=== PATIENT | male | born 1950 | race Caucasian/White ===

== ENCOUNTER 2019-07-29 15:37 | Emergency (ER) | payer OTHER ==
[~2019-07-29] VITALS: Ht 172.7 cm; Wt 74.8 kg
[~2019-07-29 15:37] MED LIST: ASPIR 8181 MG PO; CELEXA20 MG PO; CLARITIN10 MG PO; FLOMAX0.4 MG PO; FLONASE 0.05%50 MCG NASAL; FOLIC ACID1 MG PO; LIPITOR10 MG PO; NEXIUM40 MG PO; POTASSIUM20 PO; PROVIGIL 100 M100 M1 PO; TRAZODONE HCL50 MG PO; VITAMIN B-1100 M1 PO
[2019-07-29 16:39] LABS: ABSOLUTE NEUTROPHILS 3.5 thou/uL (1.4-8.2); BASOPHILS 1.2 % (0.0-2.0); EOSINOPHILS 1.6 % (0.0-3.0); HEMATOCRIT 41.2 % (42.0-52.0); HEMOGLOBIN 13.3 gm/dL (14.0-18.0); LYMPHOCYTES 36.2 % (24.0-44.0); MCH 30.3 pg (26.0-34.0); MCHC 32.2 g/dL (28.0-37.0); MCV 94.1 fL (80.0-100.0); MONOCYTES 6.6 % (1.0-8.0); PLATELET COUNT 264 thou/uL (150-400); POLYS 54.4 % (36.0-66.0); RBC 4.38 mil/uL (4.50-6.00); WBC 6.4 thou/uL (4.0-11.0)
[2019-07-29 16:53] LABS: APTT 28.5 Seconds (24.5-32.8); PROTIME 10.7 Seconds (9.3-11.4)
[2019-07-29 16:54] LABS: CALCIUM 8.2 mg/dL (8.5-10.1); POTASSIUM 3.9 mmol/L (3.5-5.1)
[2019-07-29 19:24] VITALS: BP 118/71
--- NOTE | 2019-07-31 12:34 | EKG ---
[facility] [place] [address] [address] [address] ELECTROCARDIOGRAM REPORT Name: DEEDEE PEREZ Room #: [facility]P [facility].#: [id number] Admission: 07/29/19 Attend Phys: Discharge: 07/29/19 Date of : 52 Report #: [id number] THIS REPORT FOR: cc: JAMAL - No family physician/PCP FAM - No family physician/PCP Ernst Montelongo MD [facility] THIS REPORT FOR: //name// [facility] ED Test Date: 2019-07-29 Test Time: 18:50:04 Pat Name: DEEDEE PEREZ Department: Room: Gender: Line Appliance Assembler: [facility] : 1950 Requested By: Zita George Order Number: [id number] MD: Ernst Montelongo Measurements Intervals [place] Rate: 62 P: 60 IA: 181 QRS: -23 QRSD: 91 T: 46 QT: 433 QTc: 440 Interpretive Statements Sinus rhythm Inferior infarct, old Compared to ECG 05/06/2014 11:39:25 No significant change was found Electronically Signed On 07-30-2019 9:12:37 BEDSPREAD CUTTER by Ernst Montelongo [email or web address] <ELECTRONICALLY SIGNED> By: Ernst Montelongo MD, [facility] 07/30/19911 49 49 Ernst Montelongo MD, [facility] /EPI
== END 2019-07-29 19:25 | disposition short-term general hospital (02) ==
LOC: ER 15:37
PROVIDERS: Emergency Medicine
DX: H54.61 Unqualified visual loss, right eye, normal vision left eye (principal); G45.9 Transient cerebral ischemic attack, unspecified; I10 Essential (primary) hypertension; I48.91 Unspecified atrial fibrillation; E78.5 Hyperlipidemia, unspecified; F41.9 Anxiety disorder, unspecified; F17.210 Nicotine dependence, cigarettes, uncomplicated; Z86.711 Personal history of pulmonary embolism

== ENCOUNTER 2019-08-03 13:15 | Inpatient (IN) | payer OTHER ==
[~2019-08-03] VITALS: Ht 172.7 cm; Wt 66.6 kg
--- NOTE | ~2019-08-03 | D ---
[facility] [address] [place] [address] DISCHARGE SUMMARY Name: DEEDEE PEREZ Room #: 519B-B DIS IN M.R.#: [id number] Admission: 08/03/19 Attend Phys: Ivan Lainez DO Discharge: 08/14/19 Date of : 52 Report #: [id number] THIS REPORT FOR: cc: Onofre Landeros MD, Srinath MD Kerstein, Andrew H. DO ~ THIS REPORT FOR: //name// CC: Ivan Lainez Gracie Ashleigh Landeros DATE OF SERVICE: 08/14/2019 INPATIENT PSYCHIATRIC DISCHARGE SUMMARY ATTENDING PSYCHIATRIST: Ivan Lainez DO. PHARMACY ANCILLARY: Yg Resendiz MD DISCHARGE DIAGNOSES: Persistent depressive disorder, mild neurocognitive disorder. MEDICAL COMORBIDITIES THIS ADMISSION: Include substance use disorder for alcohol, severe by history; hyperlipidemia and persistent atrial fibrillation. DISCHARGE PLAN: The patient is discharging back to nursing facility, sent to us at [facility]. Psychiatric and medical care will be by that medical facility. In addition, the patient's diet should be heart healthy. Ambulation and endurance should be encouraged. DISCHARGE MEDICATIONS: Midodrine 5 mg p.o. 3 times a day at 0600, 1200 and 1800 for hypotension, baclofen 10 mg p.o. q. 8 scheduled for muscle stiffness dystonia. The patient does have a left sided hemiparesis with left upper extremity hand contracture. Atorvastatin 5 mg p.o. daily for hyperlipidemia, diltiazem 120 mg p.o. daily for rate control for atrial fibrillation, gabapentin 300 mg p.o. at 0900, 1500 and 2100 for neuropathic pain, fluoxetine 20 mg per day for depression, Seroquel 25 mg p.o. at bedtime for sleep, lorazepam to be given at 0.5 mg p.o. q. 8 p.r.n. for breakthrough anxiety, docusate 100 mg p.o. b.i.d., cyanocobalamin 1000 mcg p.o. daily for replacement. Also continue aspirin 81 mg p.o. daily, folic acid 1 mg p.o. daily, tamsulosin 0.4 mg p.o. daily, trazodone 50 mg p.o. at bedtime, latanoprost 1 drop ophthalmic both eyes at night, Eliquis 5 mg p.o. b.i.d. for anticoagulation and senna and docusate 1 tab p.o. b.i.d. for bowel motility. LABORATORY DATA: This admission included hematology: CBC grossly normal. [address] [address] DISCHARGE SUMMARY Name: DEEDEE PEREZ Room #: 519B-B DIS IN M.R.#: [id number] Admission: 08/03/19 Attend Phys: Ivan Lainez DO Discharge: 08/14/19 Date of : 52 Report #: [id number] Chemistries: Potassium slightly low at 3.4, otherwise within normal limits. Urinalysis showed few bacteria, little bit of blood, did not trigger a culture, attributed to dehydration. Toxicology was grossly negative as were acetaminophen and salicylate levels. REASON FOR ADMISSION: Back on 08/03/2019 or so, apparently staff who is at his nursing facility, heard him say that he was having thoughts of suicide. This did not veneer jointer returner to be reality once admitted to Geriatric Psych Unit. HOSPITAL COURSE: The patient was admitted to Geriatric Psychiatry Unit. It was unclear exactly how impaired the patient was. [facility] Mental Status exam was performed. He scored a 25/30. I thought the patient would be a quick turnaround in the skilled nursing; however, because this was his first psychiatric admission, level 2 was triggered and that process took well over a week. The patient, I will say, made the best of it, participated well. I did speak with his brother, Jefferson during the admission. Apparently, the chronic alcoholism has been quite the issue for the patient and apparently he was anderson and one his significant other back in 2015. The patient has not really made a good recovery. He was most recently living on his own this May and his drinking relapsed. The patient was admitted to Geriatric Psychiatry Unit. No alcohol withdrawal symptoms were observed. Regarding his medications, did not make too many changes. Obviously benzodiazepines should be used judiciously because of his alcoholism. IMAGING THIS ADMISSION: Renal ultrasound was done, which was grossly normal. Apparently, this was ordered for renal insufficiency. On the day of discharge, the patient was not suicidal or homicidal, felt to be stable for discharge. PHYSICAL EXAMINATION: VITAL SIGNS: Temperature 37.3, pulse 67, respirations 15, BP 97/64, O2 sat 99%. MUSCULOSKELETAL: Abnormal gait due to his left sided hemiparesis. MENTAL STATUS EXAMINATION: This is a well-developed, thin male with upper left extremity hand contracture. Attention fair. Concentration fair and fair. Speech is normal in rate, volume and tone. Thought process linear and goal oriented. Thought content focused on discharge. No psychomotor agitation. No psychomotor retardation. Denied SI or HI. Denied hopelessness or helplessness. Memory, minor impairment. Insight limited. Judgment fair. Fund of knowledge average range. [facility] [address] [place] [address] DISCHARGE SUMMARY Name: DEEDEE PEREZ Room #: 519B-B DIS IN M.R.#: [id number] Admission: 08/03/19 Attend Phys: Ivan Lainez DO Discharge: 08/14/19 Date of : 52 Report #: [id number] PROGNOSIS: For this patient is guarded given his age, his alcoholism, his mild cognitive impairment and his history of relapse. By: 1944 32 Ivan Lainez DO /nt
[2019-08-03 13:16] VITALS: BP 123/73
[2019-08-03 13:41] LABS: ABSOLUTE NEUTROPHILS 5.6 thou/uL (1.4-8.2); BASOPHILS 1.3 % (0.0-2.0); EOSINOPHILS 0.9 % (0.0-3.0); HEMATOCRIT 44.1 % (42.0-52.0); HEMOGLOBIN 14.4 gm/dL (14.0-18.0); LYMPHOCYTES 26.5 % (24.0-44.0); MCH 30.6 pg (26.0-34.0); MCHC 32.5 g/dL (28.0-37.0); MONOCYTES 5.5 % (1.0-8.0); POLYS 65.8 % (36.0-66.0); RDW 17.8 % (10.5-14.5); WBC 9.7 thou/uL (4.0-11.0)
[2019-08-03] MEDS ORDERED: SEROQUEL 50 MG50 M1 PO (13:51)
[2019-08-03] MEDS ORDERED: XALATAN2.5 ML OPHTHALMIC (13:52)
[2019-08-03 13:53] LABS: ANION GAP 9 mmol/L (7-16); BUN 18 mg/dL (7-18); CALCIUM 8.9 mg/dL (8.5-10.1); CHLORIDE 105 mmol/L (98-107); CO2 25 mmol/L (21-32); GLUCOSE 143 mg/dL (74-106); SODIUM 139 mmol/L (136-145)
[2019-08-03] MEDS ORDERED: ELIQUIS5 MG PO (13:54)
[2019-08-03 13:55] LABS: POTASSIUM 4.4 mmol/L (3.5-5.1)
[2019-08-03 13:58] LABS: ALBUMIN 3.3 g/dL (3.4-5.0); SALICYLATE < 2.8 mg/dL (2.8-20.0); SGOT 27 U/L (15-37); SGPT 22 U/L (30-65); TOTAL BILIRUBIN 0.4 mg/dL (<0.1-1.0); TOTAL PROTEIN 7.2 g/dL (6.4-8.2)
[2019-08-03] MEDS ORDERED: LIPITOR40 MG PO (13:58)
[2019-08-03] MEDS ORDERED: BACLOFEN 10MG T10 MG PO (13:59)
[2019-08-03] MEDS ORDERED: CELEXA 20 MG TA20 MG PO (14:02)
[2019-08-03] MEDS ORDERED: LORAZEPAM 0.50.5 MG PO (14:07)
[2019-08-03] MEDS ORDERED: MIDODRINE HCL 55 M1 PO (14:11)
[2019-08-03] MEDS ORDERED: SENNA PLUS 8.61 EACH PO (14:11)
[2019-08-03] MEDS ORDERED: B12INJ IM ×3 (14:13→14:16)
[2019-08-03 14:32] LABS: PLATELET COUNT 325 thou/uL (150-400)
[2019-08-03 14:57] LABS: URINE BILIRUBIN NEGATIVE (Negative); URINE BLOOD 3+ (Negative); URINE CLARITY CLOUDY; URINE COLOR YELLOW; URINE GLUCOSE-RANDOM* NEGATIVE (Negative); URINE KETONES NEGATIVE (Negative); URINE LEUKOCYTES-REFLEX NEGATIVE (Negative); URINE NITRITE-REFLEX NEGATIVE (Negative); URINE PROTEIN (DIPSTICK) NEGATIVE (Negative); URINE SPECIFIC GRAVITY 1.025 (1.005-1.035); URINE UROBILINOGEN 0.2 E.U./dl (0.2-1.0)
[2019-08-03 15:08] LABS: SQUAMOUS 0-3 Few /LPF (0-3)
[2019-08-03 15:09] LABS: BACTERIA-REFLEX 1-9 Few /HPF (None Seen); CASTS None Seen /LPF (None Seen); CRYSTALS None Seen /LPF (None Seen); URINE RBC >20 Many /HPF (0-2); URINE WBC-REFLEX 0-5 Rare /HPF (0-5)
[2019-08-03 15:11] LABS: AMP/METHAMP Negative (Negative); BARBITURATES Negative (Negative); BENZODIAZEPINES Negative (Negative); COCAINE Negative (Negative); METHADONE Negative (Negative); OPIATES Negative (Negative); PCP Negative (Negative)
[2019-08-03 15:28] VITALS: BP 125/84
[2019-08-03 16:08] VITALS: BP 121/76
[2019-08-03 17:12] LABS: TROPONIN-I <0.06 ng/mL (<0.06)
--- NOTE | 2019-08-03 17:45 | NUR ---
PT. ARRIVED ON THE UNIT IN W/C FROM ER. HE IS A WHITE MALE. HE LEFT [facility] [place]. YESTERDAY RETURNING TO [facility]. HE MAKE A SUICIDAL STATEMENT TODAY AND [facility] WANTS HIM EVALUATED HERE TODAY. PT. STATED HE JUST TOLD THEM HE WOULD BE OK WITH MEETING HIS MAKER BUT DENIES IT WAS A SUICIDAL STATEMENT. HE IS ALERT AND ORIENTED TIMES FOUR. HE IS IN A WHEELCHAIR AFTER A CVA LEFT HIM WITH LEFT SIDED WEAKNESS. HE HAS A LONG MEDICAL HISTORY OF STROKE, RECURRENT MAJOR DEPRESSIVE DISORDER, GENERALIZED ANXIETY, PAROXYSMAL ATRIAL FIBRILLATION, HYPERLIPIDEMIA, TIA. HE CAN GENERALLY HELP HIMSELF. HE WAS PLEASANT AND COOPERATIVE WITH THE ADMISSION PROCESS. HE IS WAITING ON THE UNIT FOR HIS SUPPER TO BE DELIVERED. HE ANSWERS QUESTIONS WITHOUT PROBLEMS.
[2019-08-03 21:03] VITALS: BP 128/84
[2019-08-03 23:07] VITALS: BP 128/84
--- NOTE | 2019-08-04 03:27 | HC ---
[facility] [address] [place] [address] CONSULTATION Name: DEEDEE BRUNSON Room #: 525B-B ADM IN M.R.#: [id number] Admission: 08/03/19 Attend Phys: Gracie Sotelo MD Discharge: Date of : 52 Report #: [id number] THIS REPORT FOR: cc: Onofre Landeros MD,Jesi Potter MD, MD ~ CC: Gracie Landeros DATE OF SERVICE: 08/03/2019 CONSULTATION REQUESTED BY: Dr. Gracie Sotelo. REASON FOR CONSULTATION: Medical management for a patient with depression and major depressive disorder and generalized anxiety disorder. HISTORY OF PRESENT ILLNESS: The patient is a very pleasant 68-year-old gentleman with a known history of prior ischemic stroke and residual left-sided paresis with contractures also has had multiple TIAs, apparently was admitted to [facility] on 07/31/2019 and was discharged on 08/02/2019 to [facility] and at the [facility], the patient expressed to the job putter up and ticket preparer that he wants to be one with Frandy and he expressed with the nursing staff that he wants to commit suicide and therefore, was sent to the [facility] here for management of depression; however, was stopped by in the Emergency Room for clearance for medical reason, as the patient had sinus tachycardia noted in the ER. Other than that, all the blood work and a chest x-ray, all the evaluation was negative and so the patient is now being admitted for management of depression, generalized anxiety disorder and major depressive disorder. The patient informs me that he really does not want to kill himself, that suicide is actually a sin and he absolutely has no plans to end his life; however, he does want to be one with Frandy and he informs me that his brother and he makes the decision for healthcare together and his brother is Jefferson Brunson, and they both have made a decision of him being DNR and he absolutely does not want to be resuscitated; however, he does not plan to end it deliberately. The patient informs me that he has been compliant with his medications and has been actually [facility] resident only for past 2-3 weeks; prior to that, he was living at home. The patient has not had any other complaints or concerns and denies any palpitations or chest pain or any new numbness or weakness of any part of the body since he has been discharged from [facility] on 08/02/2019. REVIEW OF SYSTEMS: The patient denies any fever, chills, night sweats, nausea, vomiting, diarrhea, constipation. Denies any chest pain, orthopnea or paroxysmal nocturnal dyspnea. He also denies any cough with sputum production and he informs me that he has been on apixaban for quite some time for stroke [address] [address] CONSULTATION Name: DEEDEE BRUNSON Room #: 525B-B ADM IN M.R.#: [id number] Admission: 08/03/19 Attend Phys: Gracie Sotelo MD Discharge: Date of : 52 Report #: [id number] prevention as he has had multiple TIAs and he has not had any hematuria, hematochezia, melena, hemoptysis or hematemesis and denies any weakness or numbness of any part of the body and is independent in ambulation. Does not use any assistive devices and has not had any problems with balance and has not had any syncopal episode, absolutely denies any fall since the discharge and prior to maybe approximately 3 weeks ago, the patient informs me that he was drinking a pint of alcohol a day and he is not sure if he sustained any fall. However, he has had workup done since then. PAST MEDICAL HISTORY: Significant for: 1. Ischemic stroke with residual left-sided paresis and contractures. 2. Paroxysmal atrial fibrillation. 3. Chronic anticoagulation with apixaban. 4. Hyperlipidemia. 5. Hypertension. 6. Central retinal artery occlusion in the right eye. 7. Alcoholic liver disease. 8. Postural hypotension. 9. Major depressive disorder. 10. Generalized anxiety disorder. PERSONAL AND SOCIAL HISTORY: The patient is a lifetime nontobacco user and however, alcohol has been a major problem. As stated above, the patient has not had any alcohol for last 3 weeks since he has been a [facility] resident. The patient denies any recreational drug use. He was living at home alone prior to moving to the [facility] and his brother, Jefferson Brunson is the emergency contact as well as the [facility] and he can be reached at [phone] and the patient is DNR with Advanced Directives that are listed and present in the chart, reviewed with the nurse as well. FAMILY HISTORY: The patient's mother with lung cancer and father with Alzheimer's dementia. His brother, Jefferson is pretty healthy. The patient denies any history of cancer in the family. CURRENT MEDICATIONS: 1. Lipitor. 2. Tylenol p.r.n. 3. Midodrine. 4. Senokot. 5. Celexa. 6. Folic acid. 7. Thiamine. 8. Trazodone. 9. Apixaban. 10. Aspirin. 11. Baclofen. [facility] [address] [place] [address] CONSULTATION Name: DEEDEE BRUNSON Room #: 525B-B ADM IN M.R.#: [id number] Admission: 08/03/19 Attend Phys: Gracie Sotelo MD Discharge: Date of : 52 Report #: [id number] 12. Seroquel. 13. Flomax, recently started at [facility] and the patient does not know exactly why it was started. ALLERGIES: The patient has no known drug allergies. PAST SURGICAL HISTORY: Significant for appendectomy and the patient does not recall any other surgical procedures done. PHYSICAL EXAMINATION: VITAL SIGNS: The patient has temperature 36.8, heart rate 109, respirations 16, blood pressure 123/73, pulse oximeter 96% on room air. GENERAL: Very pleasant, alert and oriented to time, place and person, 68-year-old gentleman who is comfortable and is able to follow all directions has good eye contact and is pleased to hear that he will be able to get healthy heart diet today. HEENT: Normocephalic, atraumatic. Pupils are equally round and reactive to light. Conjunctivae clear. Sclerae nonicteric. Extraocular muscle movements are intact. Oropharynx is clear. Mucous membranes moist. NECK: Supple, no JVD, no lymphadenopathy or thyromegaly noted. HEART: S1, S2, regular. Tachycardia noted. No S3 or S4. LUNGS: Clear to auscultation bilaterally without any crackles or wheezes. ABDOMEN: Soft, nontender, nondistended, normal active bowel sounds, no organomegaly noted. EXTREMITIES: The patient has left upper extremity with near flexion contracture deformity at the elbow as well as at the wrist and otherwise the neurologic completely nonfocal. The patient is able to move all other 3 extremities against gravity as well as against resistance and cranial nerve exam is cranial nerve 3, 4, 5, and 7, 10, 11 were tested and they were within normal limit. Optic nerve and field of vision were not tested. The patient has central retinal artery occlusion in the right eye. SKIN: Without any rash. She does have seborrheic dermatitis on the scalp and forehead area. Otherwise, skin exam was unremarkable. LABORATORY DATA AND X-RAYS: 1. Urinalysis with pH 8.0, specific gravity 1.025. The patient does have microscopic hematuria with 3+ blood and rbc's greater than 20, but the urine is clear, wbc's 0-5 rare, squamous epithelial cells 0-3 and urine bacteria 1-9 few with a nitrite and leukocyte esterase negative. Urine drug screen is completely negative. 2. Hematology indicates WBC 9700 with normal differential, hemoglobin 14.4, hematocrit 44.1, red cell mass and indices are normal except for mildly elevated RDW of 17.8. 3. D-dimer was 0.34. 4. Chemistries indicate sodium 139, potassium 4.4, chloride 105, bicarbonate 25, anion gap 9, BUN 18, creatinine 1.0, estimated glomerular filtration rate of [address] [address] CONSULTATION Name: DEEDEE BRUNSON Room #: 525B-B ADM IN M.R.#: [id number] Admission: 08/03/19 Attend Phys: Gracie Sotelo MD Discharge: Date of : 52 Report #: [id number] 75. Glucose was 143. The patient has had recent hemoglobin A1c done at [facility] and it was 5.0, calcium 8.9, total bilirubin 0.4, AST 27, ALT 22, alkaline phosphatase 69. CPK 82. Troponin I less than 0.06. Total protein 7.2, albumin 3.3. Salicylate is less than 2.8, acetaminophen less than 2 and serum alcohol less than 10. 5. Electrocardiogram done in the Emergency Room as well as in the unit indicates a left atrial enlargement, sinus tachycardia, old inferior infarct and abnormal R-wave progression with a late transition. 6. The patient has had CT scan of the head on 07/29/2019, the old records were reviewed and a right eye lens has been replaced and no other abnormalities were detected and old CTs were reviewed that indicated significant degenerative arthritic changes and multiple old rib fractures noted. Medical records from [facility], the discharge papers were reviewed and the labs were reviewed and TSH and B12, folic acid and a hemoglobin A1c all has been done and B12 replacement had been accomplished with a tapering dose with a now a stable dose of 1000 mcg cyanocobalamin q. monthly IM written. ASSESSMENT AND PLAN: 1. Sinus tachycardia. Upon review of the chart from [facility] noted that the patient's metoprolol has recently been discontinued on 08/02/2019 and with a history of paroxysmal atrial fibrillation, I am concerned that the patient is having tachycardia secondary to sudden withdrawal from beta blockers. The patient was on 25 mg daily. We will go ahead and decrease it to 12.5 mg daily and we will start diltiazem for rate control, as the patient has not been started on diltiazem at . The likelihood could be because of hypotension and he has been started on midodrine. Right now, here the blood pressure has been pretty normal between 120-125 systolic and 73-96, diastolic blood pressure, so I would go ahead and start low-dose metoprolol. The patient's apixaban will be continued, 5 mg twice a day, with a fall precaution written. We will go ahead and make sure that we will have Physical Therapy evaluate the patient for gait, balance. 2. Paroxysmal atrial fibrillation. We will go ahead and start diltiazem for rate control and taper the metoprolol down and to stop it, as the patient has major depressive disorder. 3. Hyperlipidemia. The patient is on atorvastatin and liver functions are completely normal. So, we will go ahead and continue atorvastatin. Apparently, the patient was also on fenofibrate, which has been stopped at [facility] and I do plan to continue keeping it off the list. 4. Alcoholic liver disease. The patient has been consuming a pint of alcohol a day, hard liquor and has not had any alcohol withdrawal symptoms in last 3 weeks. The patient apparently was on Keppra, which was stopped at [facility]. 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 Benign prostatic hypertrophy. We will continue Flomax 0.4 mg daily. 6. Major depressive disorder as well as generalized anxiety disorder as per Dr. Sotelo, primary team and code status DNR has been written. 7. DVT prophylaxis, the patient is already on apixaban and GI prophylaxis. We will go ahead and continue Pepcid at bedtime and plan of care was discussed with the patient as well as with the nursing RN taking care of the patient. <ELECTRONICALLY SIGNED> By: Jesi Gabriel MD 08/04/19 0327 [id number] Jesi Gabriel MD /nt
--- NOTE | 2019-08-04 05:14 | NUR ---
Pt. is alert and oriented x 4. Pt. in bed but awakened easily for assessment. Affect flat. Pt. cooperative and follows commands well. Took meds PO with thin liquids. No choking or coughing noted after swallowing. Speech clear. Left upper extremity with finger/hand contracture and no movement. Pt. can move left lower extremity slowly. Pt. denies pain and no s/s of distress noted.
[2019-08-04 05:46] LABS: ABSOLUTE NEUTROPHILS 3.1 thou/uL (1.4-8.2); BASOPHILS 0.7 % (0.0-2.0); EOSINOPHILS 2.7 % (0.0-3.0); HEMATOCRIT 44.7 % (42.0-52.0); HEMOGLOBIN 14.4 gm/dL (14.0-18.0); LYMPHOCYTES 42.7 % (24.0-44.0); MCH 30.4 pg (26.0-34.0); MCHC 32.2 g/dL (28.0-37.0); MCV 94.2 fL (80.0-100.0); PLATELET COUNT 276 thou/uL (150-400); POLYS 45.9 % (36.0-66.0); RBC 4.74 mil/uL (4.50-6.00); RDW 17.9 % (10.5-14.5); WBC 6.8 thou/uL (4.0-11.0)
[2019-08-04 06:02] LABS: CALCIUM 9.1 mg/dL (8.5-10.1); CREATININE 0.9 mg/dL (0.7-1.3); MAGNESIUM 2.1 mg/dL (1.8-2.4)
[2019-08-04 06:03] LABS: POTASSIUM 3.4 mmol/L (3.5-5.1)
[2019-08-04 07:30] VITALS: BP 125/84
--- NOTE | 2019-08-04 08:52 | EKG ---
[facility] [place] [address] [place] [address] ELECTROCARDIOGRAM REPORT Name: DEEDEE PEREZ [facility] [id number] Admission: 08/03/19 Attend Phys: Gracie Sotelo MD Discharge: Date of : 52 Report #: [id number] THIS REPORT FOR: cc: Onofre Landeros MD, Srinath MD Couchonnal,Justin Rosa MD ~ THIS REPORT FOR: //name// [facility] ED Test Date: 2019-08-03 Test Time: 13:35:07 Pat Name: DEEDEE PEREZ Department: Room: [facility] Gender: M Electrical & Instrumentation Supervisor: YOLY : 1950 Requested By: Tod Theodore Order Number: [id number] MD: Justin Sargent Measurements Intervals [place] Rate: 106 P: 42 SD: 160 QRS: -58 QRSD: 91 T: 77 QT: 351 QTc: 467 Interpretive Statements Sinus tachycardia Atrial premature complexes Left anterior fascicular block Abnormal R-wave progression, late transition Compared to ECG 07/29/2019 18:50:04 Electronically Signed On 08-04-2019 8:51:20 FACING CUTTING MACHINE OPERATOR by Justin Sargent [email or web address] <ELECTRONICALLY SIGNED> By: Justin Sargent MD 08/04/19 0851 [id number] [id number] Justin Sargent MD /EPI
--- NOTE | 2019-08-04 08:52 | EKG ---
[facility] [place] [address] [place] [address] ELECTROCARDIOGRAM REPORT Name: DEEDEE PEREZ [facility] [id number] Admission: 08/03/19 Attend Phys: Gracie Sotelo MD Discharge: Date of : 52 Report #: [id number] THIS REPORT FOR: cc: Onofre Landeros MD, Srinath MD Couchonnal, Luis F. MD ~ THIS REPORT FOR: //name// [facility] Test Date: 2019-08-03 Test Time: 17:22:56 Pat Name: DEEDEE PEREZ Department: Room: [facility] Gender: M Denture Packer: Jazzy ROSE : 1950 Requested By: Jesi Gabriel Order Number: [id number] MD: Justin Sargent Measurements Intervals [place] Rate: 115 P: 45 [place]: 168 QRS: -59 QRSD: 87 T: 71 QT: 326 QTc: 451 Interpretive Statements Sinus tachycardia Left atrial enlargement Abnormal R-wave progression, late transition Inferior infarct, old Compared to ECG 07/29/2019 18:50:04 Atrial abnormality now present Sinus rhythm no longer present Myocardial infarct finding still present Electronically Signed On 08-04-2019 8:51:54 SCREW DOWN by Justin Sargent [email or web address] <ELECTRONICALLY SIGNED> By: Justin Sargent MD 08/04/19 0851 [id number] Justin Sargent MD /EPI
[2019-08-04 11:00] VITALS: BP 125/84
--- NOTE | 2019-08-04 11:28 | NUR ---
ASSUMED CARE OF PATIENT AT 08:00. PATIENT IN DAY ROOM, IN WHEELCHAIR. REPORTS THAT HE HAS NO CONCERNS, DENIES PAIN OR ANXIETY. PATIENT ASKING WHEN HE WILL DISCHARGE. DENIES THOUGHTS OF HARMING SELF OR OTHERS. WANTS TO KNOW THAT HE DOES NOT HAVE THOUGHTS OF HARMING SELF. 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 PATIENT IN AND OUT OF DAY ROOM WATCHING TV THIS SHIFT. KEEPS TO SELF BUT WILL TALK WITH OTHERS IF SPOKEN TO FIRST. REPORT GIVEN TO ANAND HENNESSY AT 11:23.
--- NOTE | 2019-08-04 13:51 | NUR ---
Assumed care of patient. Patient denies hi/si. Patient denies pain. Patient states that he is having anxiety today. Patient given a prn medication to ease the anxiety. Patients affect is blunted. Patient calm and cooperative. Will continue to monitor.
--- NOTE | 2019-08-04 17:07 | NUR ---
Sw attempted to contact Pt's DPOA/ Sister, Rachel Brunson, at [phone]. This was in an effort to set up a family meeting. Sw left a VM for a call back.
[2019-08-04 20:21] VITALS: BP 90/57
--- NOTE | 2019-08-05 04:28 | NUR ---
Assumed care on 08/04/19 @ 19:15, in bed cooperated with assessment and medication administration. Requested and provided Lorazepam 0.5mg for anxiety. A&O x 3-4. Denies Si, HI, hallucinations. Will continue to monitor q 12 minutes for patient safety, bed in low position.
--- NOTE | 2019-08-05 08:24 | NUR ---
Eliane completed chart review and started an update packet to FAX updates to [facility]. ELIANE spoke with admissions to confirm that pt is expected to d/c back and she stated that she would have to " check with her team about that." ELIANE will follow up with the SABA and MYLES. ELIANE sent the FAX packet this AM. Eliane also reported to admissions that it was SI and we are monitoring for safety but pt is admitting that he does not have a plan but is feeling hopeless.
[2019-08-05 08:46] VITALS: BP 132/89
--- NOTE | 2019-08-05 09:10 | NUR ---
ASSUMED CARE AT 0700 THIS MORNING. PT. STABLE. HE WAS IN HIS W/C ON THE UNIT FOR MEALS. HE IS PLEASANT AND COOPERATIVE WITH STAF AND PEERS. HE TOOK HIS MEDICATIONS WITHOUT DIFFICULTIES. HIS LEFT HAND IS CONTRACTURED. HE CAN EAT WELL WITH HIS RIGHT HAND.
[2019-08-05 11:48] VITALS: BP 132/89
--- NOTE | 2019-08-05 12:12 | NUR ---
Parker spoke with [facility] MILLIGAN and he confirmed that this pt lives LTC at [facility]. This is his 4-5 th nursing faciltiy and has tried independent living in subsidized apartment jun 2019 and failed. He will be returning to [facility] and has support to adjust to it. SW is starting a Level II per [facility] request.
[2019-08-05 19:30] VITALS: BP 91/56
--- NOTE | 2019-08-05 23:12 | NUR ---
Care assumed of patient at 1915: Patient resting in bed at start of shift. Patient easily aroused. Patient asked to join group in dayroom of snack and socialization. Patient joined peers in dayroom. Calm, pleasant and cooperative. Presents with flat affect, appears depressed. Patient alert and oriented x4. Patient denies pain or discomfort. Denies SI/HI/AH/VH. No s/s of delusional or paranoia behaviors. Patient denies feeling anxious or depressed at this time. Patient ate 100% HS snack. Took HS medication whole without difficulty. Patient requested new brief due to his being soiled. As nurse was assisting patient, bed noted to be soiled as well. Patient stated he knew but "was not worried about it". Education provided regarding maintaining good hygiene, keeping skin clean to avoid breakdown and staff is here to assist. Patient states understanding. Patient resistant on allowing staff to assist him change and requested to complete dressing independently. Staff provided stand by assistance due to left sided weakness post CVA. Patient also has heart monitor tabs to his chest and tape to his arms post lab draws. Patient begged nurse to leave them there because it will hurt to remove them. Nurse attempted to educate patient that they will hurt more to come off, the longer they are there. Patient became irritable and frustrated with nurse which this nurse has not seen before. Heart monitor tabs were left on. Patient offered standby assist/mod assist while he transferred back to bed. Patient able to fall to sleep without difficulty and has been resting quietly since.
--- NOTE | 2019-08-06 10:13 | NUR ---
Sw met with pt and he reported that he was feeling better and was hoping to get back to [facility] soon. Sw educted him about the Level II that is being inititated and that there would be some delay in the d/c while that is pending. he stated that he understood and was grateful for the update. Level II was submitted yesterday, today [facility] is seeking more information and corrections on the DA 124 ab. Once compelted this will be resubmitted
[2019-08-06 10:55] VITALS: BP 95/61
[2019-08-06 11:02] VITALS: BP 95/61
--- NOTE | 2019-08-06 11:10 | NUR ---
ASSUMED CARE AT 0700 THIS MORNING. PT. UP, DRESSED, AND ON THE UNIT. HE CONTINUES TO APPEAR UNKEMPT AND WILL ATTEMPT TO GET HIM INTO THE SHOWER TODAY. TOOK HIS MEDICATIONS WITHOUT ANY DIFFICULTIES THIS MORNING. HE IS AWAKE, ALERT AND ORIENTED TIMES 4. HE ATTENED MORNING MEETING AND PARTICIPATED.
[2019-08-06 19:27] VITALS: BP 118/79
--- NOTE | 2019-08-07 01:32 | NUR ---
1924 RESUMMED CARE FROM DAY SHIFT, PATIENT WAS IN BED RESTING QUIETLY. PATIENT IS EASY TO AROUSE PATIENT ATE SNACK AND TOOK MEDICATION WITHOUT INCIDENCE. PATIENT DENIES SI/HI/AH/VH AT PRESENT, PATIENT HAS LEFT SIDED WEAKMESS DUE TO CVA'S, PATIENT HAS TAPE ON RT HAND AND ELECRODE LEAD ON CHEST AND DID NOT WANT ME TO TAKE THEM OFF. PATIENT IS CALM COOPERATIVE PLEASANT WHEN YOU TALK WITH HIM. WILL CONTINUE TO MONITOR PATIENT FOR BEHAVIORS AND SAFETY.
--- NOTE | 2019-08-07 07:30 | NUR ---
Assumed care of patient this am. Patient in good spirits, calm and cooperative. Patient alert and oriented x 4. Patients affect normal. Patient denies si/hi. Patient takes medications whole with fluids. Patient ambulates via wheelchair. Patient can bare weight to transfer. Patient stated that it has been a couple of days since his last bowel movement. Patients assessment shows clear breath sounds, active bowel sounds, and s1 s2 heard with auscultation. Will continue to monitor.
[2019-08-07 07:40] VITALS: BP 126/80
[2019-08-07 08:00] VITALS: BP 126/80
--- NOTE | 2019-08-07 15:43 | NUR ---
Parker resubmitted a corrected DA 124 abc via fax to [facility]
[2019-08-07 19:32] VITALS: BP 115/75
[2019-08-07 22:15] VITALS: BP 115/75
--- NOTE | 2019-08-08 08:11 | NUR ---
SW completed chart review and pt seems to be stable and ready to d/c. Pt is pending a mandatory [facility] screen for a level II. Parker is waiting for a reponse from Mimi Chang at [facility] regaridng the pending level II. If it goes as planned, pt should be able to d/c next week.
[2019-08-08 09:09] VITALS: BP 115/78
--- NOTE | 2019-08-08 11:48 | NUR ---
Sitting in day room without s/o distress. Compliant with meds. States he is anxious 02/26. When asked why he is anxious he states he was told by the doctor that he was being sent back to [facility] and he was afraid of going back.
[2019-08-08 19:36] VITALS: BP 105/73
--- NOTE | 2019-08-09 04:57 | NUR ---
Assumed care of pt @ 1900. Pt calm et cooperative this shift. Ambulates with assistance of w/c but otherwise independent with cares. Took medications whole without difficulty. VSWNL. Health assessment with no abnormalities noted at present time. Isolated in room prior to going to sleep this shift. Denies SI/HI. Currently resting in bed with eyes closed. Will continue to monitor per protocol.
--- NOTE | 2019-08-09 08:23 | NUR ---
Date of Admission: 08/03/19 Date of Activity Therapy Assessment: 08/06/19 Activity Goal: Manage anxiety symptoms Initial Goal: 2 Group activities/day Weekly progress towards goal: On track Group participation level: Moderate Behaviors observed: Patient is primarily reserved upon social interactions. He is observed to ocassionally during these interactions though he appears to continue to lack confidence. Patient states that he is "trying to cope" each morning during goal portion of groups and has difficulty relaying what assistance he needs. Plan: No change towards goal
--- NOTE | 2019-08-09 08:28 | NUR ---
SW recieved a report that this pt was not satisfied with his current placement and sw reached out to Janene Washington and Diana perez for alterbate placement. This is only becuase we have time while we wait for the Level II.
[2019-08-09 09:22] VITALS: BP 124/76
--- NOTE | 2019-08-09 12:14 | NUR ---
0700 ASSUMED CARE OF PATIENT. 0730 PATIENT TO DAYROOM VIA WC. DENIES NEEDS AT THIS TIME. 0840 PATIENT ATE 100% OF BREAKFAST. MEDICATION GIVEN WHOLE WITHOUT DIFFICULTY. LS CLEAR, BSX4 NOTED. NO C/O PAIN DENIES SI/HI/AH/VH. PATIENT STATES GOAL FOR TODAY IS: PARTICIPATE IN ALL GROUPS TODAY. CONCERN: GOING BACK TO HOME STATES "PEOPLE ARE NOT VERY NICE THERE". PATIENT SAYS HE FEELS SAFE AND COMFORTABLE HERE. WHEN ASKS MORE ABOUT GOING HOME PATIENT SAY HE KNOWS HE WILL END UP GOING HOME AND HE WILL HAVE TO ADJUST TO PEOPLE NOT BEING NICE. ROAD OILER SUGGESTS TO PATIENT THAT MAYBE TRING TO WORK THINGS OUT OR AVOIDING THOSE PEOPLE. PATIENT SAY - OH, NEVER THOUGHT ABOUT THAT, THAT MIGHT WORK. PATIENT IS CALM, COOPERATIVE AND PLEASANT. WILL CONTINUE TO OBSERVE PATIENT.
--- NOTE | 2019-08-09 14:59 | NUR ---
PATIENT WAS SITTING IN DAYROON WATCHING TV QUIETLY. MEDICATIONS GIVEN THEN PATIENT ASKS COTA TO WALK WITH HIM TO BEDROOM. COTA WALKS WITH PATIENT, PATIENT AMBULATED WELL WITH X1 STANDBY. PATIENT TO BED TO REST. WILL CONTINUE TO OBSERVE.
[2019-08-09 19:51] VITALS: BP 117/71
--- NOTE | 2019-08-10 04:36 | NUR ---
ASSUMED CARE OF PATIENT ON 08/09/19 AT APPROXIMATELY 1915, PATIENT IN BED UPON ONE TO ONE WITH PATIENT. HE APPEARS WITH A BRIGHT AFFECT, SPEECH IS CLEAR AND THOUGHTS ARE ORGANIZED. HE STATES "IM FEELING PRETTY GOOD TODAY." HE DENIES SI HI AND HALLUCINATIONS. HE IS CALM AND COOPERATIVE, COMPLIANT WITH MEDICATION REGIMEN. HE DOES REPORT DIFFICULTY USING LEFT HAND DUE TO WHAT APPEARS TO BE A HAMMER LIKE SHAPE R/T A CVA THE PATIENT HAD IN THE PAST. HE DENIES MEDICAL CONCERNS AND DOES NOT APPEAR TO BE IN DISTRESS. NURSING WILL MAINTAIN ALL PRECAUTIONS TO ENSURE SAFETY AT ALL TIMES.
[2019-08-10 06:12] VITALS: BP 113/76
[2019-08-10 08:16] VITALS: BP 113/76
[2019-08-10 10:06] VITALS: BP 113/76
--- NOTE | 2019-08-10 11:28 | NUR ---
0700 RESUMMED CARE FROM OVERNIGHT SHIFT, PATIENT IN DAY ROOM WAITING FOR BREAKFAST. PATIENT ATE BREAKFAST TOOK MEDICATION WITHOUT INCIDENCE, PATIENT TALKING WITH A PATIENT. ON ASSESSMENT PATIENT'S BOWEL SOUNDS PRESENT, LUNGS CLEAR DENIES SI/HI/AH/VH AT PRESENT. PATIENT STATES HE SLEPT WELL AND IS COOPERATIVE CALM. PATIENT USES W/C DUE TO 2 STROKES AND LT SIDE ARM CONRACTION, WILL CONTINUE TO MONITOR PATIENT FOR SAFETY AND BEHAVIORS.
[2019-08-10 20:32] VITALS: BP 100/75
--- NOTE | 2019-08-11 04:21 | NUR ---
Assumed care of pt @ 1900. Pt calm, cooperative, et pleasant in demeanor this shift. Took medications whole without difficulty. Ambulates via w/c et independant with cares. Socializes with peers et staff. VSWNL. Health assessment with no abnormalities noted other than previously documented. Denies SI/HI at present time. Currently resting in bed with eyes closed. Will continue to monitor per protocol.
[2019-08-11 07:40] VITALS: BP 104/72
--- NOTE | 2019-08-11 14:25 | NUR ---
WITHDRAWN TO ROOM DURING ANY UNSTRUCTURED TIME-COMES OUT FOR MEALS BUT IS OBSERVED TO EAT RAPIDLY AND THEN GO IMMEDIATLY TO BED. DENIES ANY C/O PAIN/DISCOMFORT DURING AM ASSESSMENT-USES WC TO GET TO/FROM DAYROOM TO ROOM AND TRANSFERS SELF TO/FROM BED WITHOUT ASSISTANCE. DOES REQUIRE ASSIST WITH TOILETING AND OFFERED TOILET Q 2-3 HOURS BUT REFUSES STATING "I DON'T NEED TO" VOIDED X 1 PER URINAL AND HAD SMALL BM-INCONTINENT OF URINE X1. APPEARS UNSHAVEN/CLOTHING SOILED INITALLY REFUSED SHOWER BUT WHEN REAPPROACHED STATES "MAYBE LATER TODAY I'M TOO COLD RIGHT NOW" COMPLIENT WITH MEDS. PLEASANT BUT SUPERFICIAL WHEN CONVERSING WITH THIS RN DESCRIBING MOOD "OK" APPETITE "OK" DENIES ACUTE ANXIETY. NO NOTED OR REPORTED PSYCHOSIS. DENIES SI/SH/HI. REMAINS ON FALLS PRECAUTIONS. DOES ATTEND GROUP WITH PROMPTING APPEARS TO BE A PASSIVE PARTICIPANT.
--- NOTE | 2019-08-11 18:08 | NUR ---
RELUCTANTLY AGREED TO SHOWER AND SHAMPOO BUT REFUSES SHAVE STATING "I HATE THOSE RAZORS-THEY TEAR ME UP" "THEY HURT" DURING SHAMPOO IS NOTED TO HAVE SEVERAL LESIONS,SOME SCABBED TO SCALP-BEHIND LEFT EAR. PT STATES THEY DO NOT HURT BUT INSTEAD ARE ITCHY,EXCESSIVE FLAKING NOTED WELL. MD NOTIFIED OF ABOVE-AWAITING RETURN CALL.
[2019-08-11 19:35] VITALS: BP 104/68
--- NOTE | 2019-08-12 03:55 | NUR ---
Assumed care of pt @ 1900. Pt calm, cooperative, and pleasant in demeanor this shift. No behaviors noted. Took medications whole without difficulty. Ambulates halls via w/c. VSWNL. Health assessment with no abnormalities noted at present time. Denies SI/HI. Currently resting in bed with eyes closed. Will continue to monitor per protocol.
[2019-08-12 07:37] VITALS: BP 106/72
--- NOTE | 2019-08-12 08:46 | NUR ---
Sw completed chart review and pt is ready to d/c once the level II is completed. It is expected to be done Mon/ Monday this week. ELIANE reported thsi to pt and discussed going back to [facility] rooms. He admits that he wants to keep trying there as he has made some friends. He jokingly stated that he would rather stay here. Teodora from [facility] is going to visit with pt this week.
--- NOTE | 2019-08-12 09:32 | NUR ---
[facility] will be here at 1pm today to complete the assessment. Pt will likely d/c to [place] tomorrow.
[2019-08-12 10:03] VITALS: BP 107/72
--- NOTE | 2019-08-12 14:48 | NUR ---
Assumed care around 0700. patient is very calm and pleasant. participates in group therapy. Denies SI/HI, hallucination, and depression. Looking forward to going home/facility. Good appetite and takes his medication whole. Very compliant. Will continue to monitor.
--- NOTE | 2019-08-12 14:54 | NUR ---
Pt met with Gudelia and the shopping investigator with [facility]. After their meeting, Gudelia told SW that pt said he is ready to come back. She said she agreed to change his roommate and have him admit in the morning. She said she explained the same staff members will be working at the facility. She reported that pt was fine with that. She said a morning discharge would be best. She is going to go back to the facility and get everything approved with administration. SW team will continue to follow pt during his stay on this unit.
[2019-08-12 19:35] VITALS: BP 109/72
--- NOTE | 2019-08-12 23:59 | NUR ---
COOPERATIVE AND PLEASANT WHEN APPROACHED IN ROOM FOR [facility] MEDICATIONS-DENIES C/O PAIN/DISCOMFORT DURING PM ASSESSMENT. DID HAVE HS SNACK WITH ENCOURAGEMENT AND WAS JOKING WITH THIS NURSE ABOUT HAVING "A JUICY CHEESEBURGER AND FRIES" DENIES SI/SH/HI-FULL RANGE AFFECT. NO NOTED OR REPORTED PSYCHOSIS-ALERT AND ORIENTED TO PERSON/PLACE-UNSURE OF DATE. ASSISTED TO BR WITH SBA X1 AND DID URINATE SMALL AMOUNT IN TOILET-COCYX SLIGHTLY REDDENED BUT NO OPEN AREAS NOTED. APPEARS TO BE RESTING QUIETLY AT THIS TIME
[2019-08-13 08:16] VITALS: BP 111/66
--- NOTE | 2019-08-13 09:18 | NUR ---
ELIANE spoke with Teodora about the meeting yesterday and completed a chart review. Pt will D/C Wed at 11am with van transportation. Eliane called and left a VM with Jefferson to confirm the d/c. ELIANE made the packet and left it on the chart. D/C fax packet is prepped too. Eliane reported this to Dr Lainez and nursing.
[2019-08-13 09:55] VITALS: BP 111/66
--- NOTE | 2019-08-13 11:18 | NUR ---
Nutrition: Assessed due to LOS. Admit: major depressive disorder, anxiety disorder. Supposed to discharge today, but per updated notes, plans for discharge now tomorrow. Hx includes alcoholic liver disease. On a heart healthy diet with weekly B12 injections, also on folic acid and thimaine supplementation. On scheduled bowel regimen as well. Eating exceptional with near 100% meal intake at all meals. Meal average= 98% per last 18 meals. CBW of 146.8# places pt at healthy BMI 22.3 kg/m2. Sat down in day area w/ pt. He reports no nutrition concerns; loves the food here. Very complimentary of food. Meat aversion mainly to red meat, but still loves chicken/turkey and all other protein sources discussed. Encouraged multiple food groups and 1-2 protein items/meal. No further interventions needed. Low nutrition risk.
--- NOTE | 2019-08-13 13:12 | NUR ---
1310 RESUMMED CARE FROM OVERNIGHT SHIFT, PATIENT SITTING IN DAY ROOM TALKING WITH OTHER PATIENTS. PATIENT ATE BREAKFAST TOOK MEDICATION WITHOUT INCIDENCE. PATIENT COOPERATIVE, CALM DENIES ANY SI/HI/AV/AH AT [facility]. PATIENT IS SUPPOSE TO DISCHARGE TO [facility] [[email or web address] TOMORROW. PATIENT IS VERY HAPPY TO BE GOING THERE, PATIENT DID WALK IN HALLWAY WITH GAIT BELT ON. WILL CONTINUE TO MONITOR PATIENT FOR SAFETY AND BEHAVIORS.
[2019-08-13 19:19] VITALS: BP 114/77
[2019-08-13 21:00] VITALS: BP 114/77
--- NOTE | 2019-08-14 01:00 | NUR ---
Assumed care of patient this pm shift. Patient in good spirits. Patients affect normal. Patient denies hi/si. Patient denies pain. Patient is calm and cooperative. Patient is looking forward to going home. Patient takes his medications whole. Patient ambulates with a wheel chair. Patients assessment shows clear breath sounds, active bowel sounds, and s1 s2 heard with auscultation. Patient is active and social and talks frequently with peers and staff. We will continue to monitor.
[2019-08-14] MEDS ORDERED: MIDODRINE HCL 55 M1 PO (08:57)
[2019-08-14] MEDS ORDERED: BACLOFEN 10MG T10 MG PO (08:58)
[2019-08-14] MEDS ORDERED: LIPITOR10 MG PO (08:59)
[2019-08-14] MEDS ORDERED: CARDIZEM CD120 MG PO (08:59)
[2019-08-14] MEDS ORDERED: NEURONTIN 300300 M1 PO (09:01)
--- NOTE | 2019-08-14 09:02 | NUR ---
SW met with pt and he is ready to d/c. SW faxed medications to [facility], as they are asking for the d/c orders now and will not admit without them. Will send as soon as they are ready.
[2019-08-14] MEDS ORDERED: PROZAC20 MG PO (09:04)
[2019-08-14] MEDS ORDERED: SEROQUEL 25 MG25 M1 PO (09:06)
[2019-08-14] MEDS ORDERED: LORAZEPAM 0.50.5 MG PO (09:06)
[2019-08-14] MEDS ORDERED: B-12500 MCG PO (09:08)
[2019-08-14] MEDS ORDERED: COLACE 100 MG100 MG PO (09:08)
[2019-08-14 09:18] VITALS: BP 97/64
--- NOTE | 2019-08-14 09:19 | NUR ---
0700 ASSUMED CARE OF PATIENT. PATIENT SITTING AT TABLE IN DAYROOM AT THIS TIME. 0830 PATIENT ATE 100% OF BREAKFAST DENIES PAIN, DENIES SI/HI/AH/AV, PATIENT CALM AND COOPERATIVE. SLIGHTLY NERVOUS DUE TO GOING HOME TODAY. PATIENT GOAL IS THAT DC GOES SMOOTHLY AND HAPPENS. YESTERDAY WAS HIS DC AND PT STATES IT DID NOT HAPPEN. NO CONCERNS VOICED. PATIENT DENIES DEPRESSION AND ANXIETY. DISCHARGE OF PATIENT IS PLANNED FOR 11AM.
--- NOTE | 2019-08-14 09:21 | NUR ---
ELIANE faxed d/c orders and summary to [facility] [phone] confimration receipt was recieved and this was left on chart.
--- NOTE | 2019-08-14 11:33 | NUR ---
PATIENT [facility]'D TO [facility] AT 1125 VIA WC ACCOMPANIED BY TRUCK MECHANIC AND TRANSPORT TO VEHICLE. PATIENT SMILING AND HAPPY THAT HE IS LIVING. ATTEMPTED TO CALL FECILITY TO GIVE REPORT, NO ANSWER. WILL ATTEMPT LATER TO GIVE REPORT.
--- NOTE | 2019-08-16 14:19 | NUR ---
ELIANE faxed the Level II determination to [facility] and left for medical records to chart with fax confirmation.
== END 2019-08-14 11:25 | DRG 885 ==
LOC: ER 13:15 → EROBS 15:21 → SBH 15:21
PROVIDERS: Emergency Medicine; Internal Medicine; ADMIT Psychiatry & Neurology Psychiatry
DX: F33.2 Major depressive disorder, recurrent severe without psychotic features (principal); I69.354 Hemiplegia and hemiparesis following cerebral infarction affecting left non-dominant side; I48.19 Other persistent atrial fibrillation; R45.851 Suicidal ideations; F03.91 Unspecified dementia, unspecified severity, with behavioral disturbance; F41.0 Panic disorder [episodic paroxysmal anxiety]; F10.21 Alcohol dependence, in remission; I48.0 Paroxysmal atrial fibrillation; I10 Essential (primary) hypertension; E78.5 Hyperlipidemia, unspecified; Z79.01 Long term (current) use of anticoagulants; F41.1 Generalized anxiety disorder; K70.9 Alcoholic liver disease, unspecified; N40.0 Benign prostatic hyperplasia without lower urinary tract symptoms; I95.1 Orthostatic hypotension; Z66 Do not resuscitate; E78.00 Pure hypercholesterolemia, unspecified; Z86.711 Personal history of pulmonary embolism; Z79.899 Other long term (current) drug therapy; Z80.1 Family history of malignant neoplasm of trachea, bronchus and lung; Z82.0 Family history of epilepsy and other diseases of the nervous system; Z79.82 Long term (current) use of aspirin
CPT/HCPCS: 10880